=== PATIENT | female | born 1955 | race Caucasian/White ===

== ENCOUNTER 2017-03-25 10:05 | Inpatient (IN) | END 2017-03-27 10:25 | disposition home or self-care (01) | DRG 473 | DX: M50.121 Cervical disc disorder at C4-C5 level with radiculopathy (principal); E78.5 Hyperlipidemia, unspecified; F41.9 Anxiety disorder, unspecified ==

== ENCOUNTER 2018-03-31 11:39 | Inpatient (IN) | END 2018-04-03 12:31 | disposition home or self-care (01) | DRG 455 ==